=== PATIENT | female | born 1955 | race African-American/Black ===

== ENCOUNTER 2019-09-22 21:12 | Inpatient (IN) | payer MEDICARE, MEDICAID ==
[~2019-09-22] VITALS: Ht 182.9 cm; Wt 147.0 kg
[2019-09-22] MEDS ORDERED: IPRATROPIUM BROMIDE (0.02%) 0.5MG/2.5ML NEB HHN STA (21:23)
[2019-09-22] MEDS ORDERED: METHYLPREDNISOLONE SOD SUCC 125 MG/2 ML VIAL IV STA (21:23)
[2019-09-22] MEDS ORDERED: ALBUTEROL (0.083%) 2.5MG/3ML NEB HHN STA (21:23)
[2019-09-23] MEDS ORDERED: IPRATROPIUM BROMIDE (0.02%) 0.5MG/2.5ML NEB HHN STA (00:24)
[2019-09-23] MEDS ORDERED: ALBUTEROL (0.083%) 2.5MG/3ML NEB HHN STA (00:24)
[2019-09-23 00:30] LABS: EOSINOPHILS % 0.8 % (0.0-5.0); HEMOGLOBIN. 15.4 g/dL (12.0-16.0); LYMPHOCYTES % 13.9 % (20.0-50.0); MEAN CORPUSCULAR HEMOGLOBIN 30.3 pg (28.0-32.0); MEAN CORPUSCULAR VOLUME 90.3 fL (81.0-99.0); MEAN PLATELET VOLUME 7.2 fl (7.4-10.4); MONOCYTES % 2.8 % (2.0-8.0); NEUTROPHILS % 81.5 % (40.0-76.0); PLATELET 358 x1000/uL (130-400); RED BLOOD CELL COUNT 5.09 mill/uL (4.2-5.4); RED CELL DISTRIBUTION WIDTH 13.7 % (11.6-14.6)
[2019-09-23 01:17] LABS: CHLORIDE 107 mEq/L (98-107)
[2019-09-23] MEDS ORDERED: ENOXAPARIN 100MG/ML SYR SUBCUT NR (02:15)
[2019-09-23] MEDS ORDERED: METOPROLOL TARTRATE 25MG TABLET PO NR (02:15)
[2019-09-23] MEDS ORDERED: MORPHINE SULFATE 2 MG/ML CPJ (NOT FOR IM USE) IV PRN (02:15)
[2019-09-23] MEDS ORDERED: ASPIRIN 325MG EC TABLET PO NR (02:15)
[2019-09-23] MEDS ORDERED: NITROGLYCERIN OINT 1GM/INCH UDPKT TD SCH (05:00)
[2019-09-23] MEDS: ALBUTEROL 6.7GM HFA INHALER INH PRN ×3 (08:39→21:25)
[2019-09-23] MEDS ORDERED: METOPROLOL TARTRATE 25MG TABLET PO SCH (09:00)
[2019-09-23] MEDS: DILTIAZEM HCL 30MG TABLET PO SCH ×2 (12:30→22:00)
[2019-09-23] MEDS ORDERED: METHYLPREDNISOLONE SOD SUCC 40 MG/ML VIAL IV SCH (12:32)
[2019-09-23] MEDS: NITROGLYCERIN OINT 1GM/INCH UDPKT TD SCH ×2 (14:33→22:00)
[2019-09-23] MEDS: ENOXAPARIN 100MG/ML SYR SUBCUT SCH (15:55)
[2019-09-23] MEDS: MONTELUKAST SODIUM 10MG TABLET PO SCH (17:33)
[2019-09-23] MEDS: METOPROLOL TARTRATE 25MG TABLET PO SCH (21:00)
[2019-09-23 23:45] VITALS: BP 108/68
[2019-09-24] VITALS: BP 108/68
[2019-09-24] MEDS: FAMOTIDINE 20MG TABLET PO SCH ×3 (01:00→21:00)
[2019-09-24] MEDS: ATORVASTATIN CALCIUM 40MG TABLET PO SCH ×2 (01:00→21:00)
[2019-09-24] MEDS: METHYLPREDNISOLONE SOD SUCC 40 MG/ML VIAL IV SCH ×3 (01:00→13:49)
[2019-09-24] MEDS ORDERED: ATROV IH ×2 (01:58→16:09)
[2019-09-24] MEDS ORDERED: ALBU18HF2 IH ×2 (01:58→16:09)
[2019-09-24] MEDS: ENOXAPARIN 100MG/ML SYR SUBCUT SCH (03:04)
[2019-09-24 03:41] LABS: *AMPHETAMINES SCREEN URINE NEGATIVE (NEGATIVE)
[2019-09-24 03:42] LABS: *BARBITURATES SCREEN URINE NEGATIVE (NEGATIVE); *BENZODIAZEPINES SCREEN URINE NEGATIVE (NEGATIVE); *COCAINE SCREEN URINE NEGATIVE (NEGATIVE); METHADONE URINE SCREEN NEGATIVE (NEGATIVE); OPIATES URINE SCREEN PRESUMTIVE POSITIVE (NEGATIVE); PHENCYCLIDINE URINE SCREEN NEGATIVE (NEGATIVE)
[2019-09-24 03:43] LABS: CANNABINOID URINE SCREEN NEGATIVE (NEGATIVE)
[2019-09-24 04:00] VITALS: BP 128/79
[2019-09-24] MEDS: DILTIAZEM HCL 30MG TABLET PO SCH ×3 (05:07→22:00)
[2019-09-24] MEDS: NITROGLYCERIN OINT 1GM/INCH UDPKT TD SCH ×3 (05:07→22:00)
[2019-09-24] MEDS: ALBUTEROL 6.7GM HFA INHALER INH PRN (05:45)
[2019-09-24 06:39] LABS: INR 1.6; PROTHROMBIN TIME 17.4 sec (9.6-11.0)
[2019-09-24 07:00] LABS: CHLORIDE 108 mEq/L (98-107)
[2019-09-24 07:05] LABS: BASOPHILS % 0.7 % (0.0-2.0); HEMOGLOBIN. 13.6 g/dL (12.0-16.0); LYMPHOCYTES % 7.5 % (20.0-50.0); MEAN CORPUSCULAR HEMOGLOBIN 30.2 pg (28.0-32.0); MEAN PLATELET VOLUME 7.7 fl (7.4-10.4); MONOCYTES % 3.2 % (2.0-8.0); NEUTROPHILS % 88.6 % (40.0-76.0); PLATELET 371 x1000/uL (130-400); RED BLOOD CELL COUNT 4.51 mill/uL (4.2-5.4); RED CELL DISTRIBUTION WIDTH 13.8 % (11.6-14.6)
[2019-09-24 08:00] VITALS: BP 114/76
[2019-09-24] MEDS: LORATADINE 10MG TABLET PO SCH (08:38)
[2019-09-24] MEDS: ASPIRIN 81MG TABLET PO SCH (08:40)
[2019-09-24] MEDS: METOPROLOL TARTRATE 25MG TABLET PO SCH ×2 (08:40→21:00)
[2019-09-24 10:00] VITALS: BP 120/75
[2019-09-24 12:00] VITALS: BP 118/84
[2019-09-24] MEDS ORDERED: REGADENOSON 0.4 MG/5 ML IV NR (13:30)
[2019-09-24 16:00] VITALS: BP 108/86
[2019-09-24] MEDS ORDERED: ASPI-1158 MT (16:09)
[2019-09-24] MEDS ORDERED: LIP40 MT (16:10)
[2019-09-24] MEDS ORDERED: MED4 MT (16:10)
[2019-09-24] MEDS: MONTELUKAST SODIUM 10MG TABLET PO SCH (17:21)
[2019-09-24] MEDS: ENOXAPARIN 150MG/ML SYR SUBCUT SCH (18:00)
[2019-09-24] MEDS: FLUTICASONE PROPIONATE 50MCG/SPRAY BOTTLE BOTHNSTRLS SCH (21:00)
[2019-09-24] MEDS ORDERED: IPRATROPIUM/ALBUTEROL 0.5-3(2.5)MG/3ML NEB HHN SCH (22:00)
[2019-09-25 06:13] LABS: BASOPHILS % 0.8 % (0.0-2.0); HEMATOCRIT. 40.4 % (36.0-48.0); HEMOGLOBIN. 13.5 g/dL (12.0-16.0); LYMPHOCYTES % 9.7 % (20.0-50.0); MEAN CORPUSCULAR HEMOGLOBIN 30.2 pg (28.0-32.0); MEAN CORPUSCULAR VOLUME 90.5 fL (81.0-99.0); MEAN PLATELET VOLUME 7.6 fl (7.4-10.4); MONOCYTES % 6.8 % (2.0-8.0); NEUTROPHILS % 82.7 % (40.0-76.0); PLATELET 351 x1000/uL (130-400); RED BLOOD CELL COUNT 4.46 mill/uL (4.2-5.4); RED CELL DISTRIBUTION WIDTH 13.7 % (11.6-14.6)
[2019-09-25 07:02] LABS: CHLORIDE 106 mEq/L (98-107)
[2019-09-25] MEDS: DILTIAZEM HCL 30MG TABLET PO SCH ×2 (07:20→13:44)
[2019-09-25 08:00] VITALS: BP 138/84
[2019-09-25] MEDS: FLUTICASONE PROPIONATE 50MCG/SPRAY BOTTLE BOTHNSTRLS SCH (08:33)
[2019-09-25] MEDS: METHYLPREDNISOLONE SOD SUCC 40 MG/ML VIAL IV SCH ×2 (08:33→17:00)
[2019-09-25] MEDS: ENOXAPARIN 150MG/ML SYR SUBCUT SCH (08:40)
[2019-09-25] MEDS: NITROGLYCERIN OINT 1GM/INCH UDPKT TD SCH ×2 (08:41→13:44)
[2019-09-25] MEDS: ASPIRIN 81MG TABLET PO SCH (09:00)
[2019-09-25] MEDS: METOPROLOL TARTRATE 25MG TABLET PO SCH (09:00)
[2019-09-25] MEDS: LORATADINE 10MG TABLET PO SCH (09:00)
[2019-09-25] MEDS: FAMOTIDINE 20MG TABLET PO SCH (09:00)
[2019-09-25] MEDS ORDERED: REGADENOSON 0.4 MG/5 ML IV ONE (10:21)
[2019-09-25 12:00] VITALS: BP 137/79
[2019-09-25 12:23] VITALS: BP 137/79
[2019-09-25 16:00] VITALS: BP 130/83
[2019-09-25] MEDS: MONTELUKAST SODIUM 10MG TABLET PO SCH (17:00)
[2019-09-25] MEDS ORDERED: IPRATROPIUM/ALBUTEROL 0.5-3(2.5)MG/3ML NEB ONE (23:54)
== END 2019-09-25 17:50 | disposition home or self-care (01) | DRG 280 ==
LOC: ER 21:12 → EDBEDREQTM 09-23 00:37 → EDBEDREQ 09-23 00:37 → ENRESERV 09-23 23:05 → 7WST 09-23 23:43 → 6WST 09-24 11:37
PROVIDERS: ADMIT Internal Medicine; ATTEND Internal Medicine
DX: I21.4 Non-ST elevation (NSTEMI) myocardial infarction (principal); J96.01 Acute respiratory failure with hypoxia; J44.1 Chronic obstructive pulmonary disease with (acute) exacerbation; J45.901 Unspecified asthma with (acute) exacerbation; Z68.41 Body mass index [BMI] 40.0-44.9, adult; E66.09 Other obesity due to excess calories; D72.810 Lymphocytopenia; E78.5 Hyperlipidemia, unspecified; I10 Essential (primary) hypertension; T38.0X5A Adverse effect of glucocorticoids and synthetic analogues, initial encounter; Z20.828 Contact with and (suspected) exposure to other viral communicable diseases; D72.829 Elevated white blood cell count, unspecified; Z79.82 Long term (current) use of aspirin; Z79.899 Other long term (current) drug therapy; Z82.3 Family history of stroke; Z82.49 Family history of ischemic heart disease and other diseases of the circulatory system; Y92.89 Other specified places as the place of occurrence of the external cause; Z87.891 Personal history of nicotine dependence; Z71.89 Other specified counseling
CPT/HCPCS: 36415; 71045; 78452; 80048; 80053; 80061; 80305; 83880; 84443; 84484; 85025; 85379; 87420; 87635; 87804; 93005; 93017; 93306; 96372; 96374; 99291; A9500; J1650; J2270; J2785; J2920; J2930

== ENCOUNTER 2019-10-17 15:41 | Inpatient (IN) | payer MEDICARE, MEDICAID ==
[~2019-10-17] VITALS: Ht 182.9 cm; Wt 139.9 kg
[~2019-10-17 15:41] MED LIST: ALBU18HF2 IH; ASPI-1158 MT; ATROV IH; LIP40 MT; MED4 MT
[2019-10-17] MEDS ORDERED: METHYLPREDNISOLONE SOD SUCC 125 MG/2 ML VIAL IV STA (16:36)
[2019-10-17 17:00] LABS: BASOPHILS % 1.2 % (0.0-2.0); EOSINOPHILS % 7.2 % (0.0-5.0); HEMATOCRIT. 40.4 % (36.0-48.0); HEMOGLOBIN. 13.7 g/dL (12.0-16.0); LYMPHOCYTES % 25.3 % (20.0-50.0); MEAN CORPUSCULAR HEMOGLOBIN 30.7 pg (28.0-32.0); MEAN CORPUSCULAR VOLUME 90.7 fL (81.0-99.0); MEAN PLATELET VOLUME 6.8 fl (7.4-10.4); MONOCYTES % 8.6 % (2.0-8.0); NEUTROPHILS % 57.7 % (40.0-76.0); PLATELET 354 x1000/uL (130-400); RED BLOOD CELL COUNT 4.46 mill/uL (4.2-5.4); RED CELL DISTRIBUTION WIDTH 13.3 % (11.6-14.6)
[2019-10-17 17:07] LABS: CHLORIDE 110 mEq/L (98-107)
[2019-10-17] MEDS ORDERED: IPRATROPIUM BROMIDE (0.02%) 0.5MG/2.5ML NEB HHN STA (18:20)
[2019-10-17] MEDS ORDERED: ALBUTEROL (0.083%) 2.5MG/3ML NEB HHN STA (18:20)
[2019-10-17] MEDS ORDERED: ALBUTEROL (0.5%) 2.5MG/0.5ML NEB HHN ONE (18:43)
[2019-10-17] MEDS ORDERED: HYDROCODONE/ACETAMINOPHEN 10/325MG TABLET PO PRN (23:00)
[2019-10-17] MEDS ORDERED: MORPHINE SULFATE 2 MG/ML CPJ (NOT FOR IM USE) IV PRN (23:00)
[2019-10-17] MEDS ORDERED: CLONIDINE 0.1MG TABLET PO PRN (23:00)
[2019-10-17] MEDS ORDERED: LORAZEPAM 2MG/ML CPJ IV PRN (23:00)
[2019-10-17] MEDS ORDERED: MAGNESIUM/ALUMINUM HYDROXIDE/SIMETHICONE 30ML UDC PO PRN (23:00)
[2019-10-17] MEDS ORDERED: DOCUSATE SODIUM 100MG CAPSULE PO PRN (23:00)
[2019-10-17] MEDS ORDERED: DIPHENHYDRAMINE 50MG/ML VIAL IV PRN (23:00)
[2019-10-17] MEDS ORDERED: HYDRALAZINE 20MG/ML VIAL IV PRN (23:00)
[2019-10-17] MEDS ORDERED: ONDANSETRON HCL 4MG/2ML INJ IV PRN (23:00)
[2019-10-17] MEDS ORDERED: ACETAMINOPHEN 325MG TABLET PO PRN (23:00)
[2019-10-17] MEDS ORDERED: ENOXAPARIN 40MG/0.4ML SYR SUBCUT SCH (23:00)
[2019-10-17] MEDS ORDERED: IPRATROPIUM/ALBUTEROL 0.5-3(2.5)MG/3ML NEB HHN PRN (23:00)
[2019-10-17] MEDS ORDERED: GUAIFENESIN 200MG/10ML SUGAR FREE UDC PO PRN (23:00)
[2019-10-18] MEDS ORDERED: DIPHENHYDRAMINE 50MG/ML VIAL IV PRN (03:05)
[2019-10-18] MEDS ORDERED: CLONIDINE 0.1MG TABLET PO PRN (03:15)
[2019-10-18] MEDS ORDERED: ACETAMINOPHEN 325MG TABLET PO PRN (03:15)
[2019-10-18] MEDS ORDERED: GUAIFENESIN 200MG/10ML SUGAR FREE UDC PO PRN (03:30)
[2019-10-18] MEDS ORDERED: DOCUSATE SODIUM 100MG CAPSULE PO PRN (03:30)
[2019-10-18] MEDS ORDERED: IPRATROPIUM/ALBUTEROL 0.5-3(2.5)MG/3ML NEB HHN PRN (04:34)
[2019-10-18] MEDS ORDERED: HYDROCODONE/ACETAMINOPHEN 10/325MG TABLET PO PRN (04:34)
[2019-10-18] MEDS ORDERED: LORAZEPAM 2MG/ML CPJ IV PRN (04:45)
[2019-10-18] MEDS ORDERED: MAGNESIUM/ALUMINUM HYDROXIDE/SIMETHICONE 30ML UDC PO PRN (04:45)
[2019-10-18] MEDS ORDERED: HYDRALAZINE 20MG/ML VIAL IV PRN (04:45)
[2019-10-18] MEDS ORDERED: ONDANSETRON HCL 4MG/2ML INJ IV PRN (04:45)
[2019-10-18] MEDS ORDERED: MORPHINE SULFATE 2 MG/ML CPJ (NOT FOR IM USE) IV PRN (04:45)
[2019-10-18] MEDS: SODIUM CHLORIDE 0.9% INJ 3ML FLUSH IVF SCH ×2 (08:00→14:23)
[2019-10-18] MEDS: ENOXAPARIN 40MG/0.4ML SYR SUBCUT SCH (14:26)
[2019-10-18] MEDS ORDERED: ALBUTEROL 6.7GM HFA INHALER ORI SCH (21:00)
[2019-10-19 08:50] VITALS: BP 125/83
[2019-10-19] MEDS ORDERED: THIAMINE HCL 100MG TABLET PO SCH (09:00)
[2019-10-19] MEDS ORDERED: ASCORBIC ACID 500 MG TABLET PO SCH (09:00)
[2019-10-19] MEDS ORDERED: ZINC SULFATE 220 MG ( 50 ) CAPSULE PO SCH (09:00)
[2019-10-19] MEDS: ENOXAPARIN 40MG/0.4ML SYR SUBCUT SCH ×2 (10:15→22:29)
[2019-10-19] MEDS ORDERED: FAMO20TA8 MT (11:55)
[2019-10-19 12:00] VITALS: BP 106/66
[2019-10-19] MEDS ORDERED: IPRATROPIUM/ALBUTEROL 0.5-3(2.5)MG/3ML NEB HHN PRN (13:45)
[2019-10-19] MEDS: SODIUM CHLORIDE 0.9% INJ 3ML FLUSH IVF SCH ×2 (13:50→22:30)
[2019-10-19 16:00] VITALS: BP 112/77
[2019-10-19] MEDS ORDERED: IPRATROPIUM/ALBUTEROL 0.5-3(2.5)MG/3ML NEB HHN SCH (16:00)
[2019-10-19] MEDS ORDERED: MONTELUKAST SODIUM 10MG TABLET PO SCH (17:00)
[2019-10-19 20:00] VITALS: BP 105/71
[2019-10-19] MEDS: FAMOTIDINE 20MG TABLET PO SCH (22:29)
[2019-10-19] MEDS: METHYLPREDNISOLONE SOD SUCC 40 MG/ML VIAL IV SCH (22:29)
[2019-10-20] VITALS: BP 129/81
[2019-10-20 04:00] VITALS: BP 110/73
[2019-10-20] MEDS: SODIUM CHLORIDE 0.9% INJ 3ML FLUSH IVF SCH (06:24)
[2019-10-20 08:00] VITALS: BP 120/85
[2019-10-20] MEDS: FAMOTIDINE 20MG TABLET PO SCH (08:30)
[2019-10-20] MEDS: METHYLPREDNISOLONE SOD SUCC 40 MG/ML VIAL IV SCH (08:30)
[2019-10-20] MEDS: ENOXAPARIN 40MG/0.4ML SYR SUBCUT SCH (08:31)
[2019-10-20] MEDS ORDERED: LORATADINE 10MG TABLET PO SCH (09:00)
[2019-10-20 09:42] VITALS: BP 120/85
[2019-10-20 09:45] VITALS: BP 120/85
[2019-10-20 12:00] VITALS: BP 106/68
== END 2019-10-20 12:45 | disposition home or self-care (01) | DRG 189 ==
LOC: ER 15:41 → 6WST 18:17 → EDBEDREQTM 18:19 → EDBEDREQ 18:19 → ENRESERV 22:12 → CANRESERV 22:12 → 5WST 22:55 → UNDOADMIN 22:55 → EDBEDREQ 10-18 21:56 → ENRESERV 10-19 04:49 → CANRESERV 10-19 04:49 → ENRESERV 10-19 07:44
PROVIDERS: ADMIT Internal Medicine; ATTEND Internal Medicine
DX: J96.00 Acute respiratory failure, unspecified whether with hypoxia or hypercapnia (principal); J45.901 Unspecified asthma with (acute) exacerbation; E46 Unspecified protein-calorie malnutrition; Z68.41 Body mass index [BMI] 40.0-44.9, adult; D72.819 Decreased white blood cell count, unspecified; R79.89 Other specified abnormal findings of blood chemistry; I10 Essential (primary) hypertension; D72.1 Eosinophilia; J44.9 Chronic obstructive pulmonary disease, unspecified; E66.01 Morbid (severe) obesity due to excess calories; Z79.82 Long term (current) use of aspirin; Z79.899 Other long term (current) drug therapy; Z87.891 Personal history of nicotine dependence; I25.2 Old myocardial infarction; Z03.818 Encounter for observation for suspected exposure to other biological agents ruled out
CPT/HCPCS: 36415; 71045; 80053; 83880; 84484; 85025; 85379; 87635; 93005; 94640; 96374; 99285; J1650; J2920; J2930; C9803-CS; U0003-CS

== ENCOUNTER 2022-04-09 12:47 | Emergency (ER) | payer MEDICARE, MEDICAID ==
[~2022-04-09] VITALS: Ht 172.7 cm; Wt 100.0 kg
[~2022-04-09 12:47] MED LIST changes: -ASPI-1158 MT; +ASPI-1406 MT; +FAMO20TA8 MT; -MED4 MT
[2022-04-09] MEDS ORDERED: PREDNISONE 20MG TABLET PO ONE (14:00)
[2022-04-09] MEDS ORDERED: IPRATROPIUM/ALBUTEROL 0.5-3(2.5)MG/3ML NEB HHN ONE ×2 (14:00→16:15)
[2022-04-09] MEDS ORDERED: MAGNESIUM 1 G PREMIX 100 ML IV ONE (14:00)
[2022-04-09 14:31] LABS: BASOPHILS % 1.5 % (0.0-2.0); HEMATOCRIT. 45.1 % (36.0-48.0); HEMOGLOBIN. 14.9 g/dL (12.0-16.0); LYMPHOCYTES % 36.3 % (20.0-50.0); MEAN CORPUSCULAR HEMOGLOBIN 29.5 pg (28.0-32.0); MEAN CORPUSCULAR VOLUME 89.5 fL (81.0-99.0); MEAN PLATELET VOLUME 7.4 fl (7.4-10.4); MONOCYTES % 8.2 % (2.0-8.0); PLATELET 344 x1000/uL (130-400); RED BLOOD CELL COUNT 5.04 mill/uL (4.2-5.4); RED CELL DISTRIBUTION WIDTH 14.2 % (11.6-14.6)
[2022-04-09 14:37] LABS: CHLORIDE 104 mEq/L (98-107)
[2022-04-09] MEDS ORDERED: P20 PO (18:37)
[2022-04-09 18:40] VITALS: BP 122/72
[2022-04-09] MEDS ORDERED: DOXY100C5 MT (20:50)
== END 2022-04-09 18:41 | disposition home or self-care (01) ==
LOC: ER 12:47
DX: J45.901 Unspecified asthma with (acute) exacerbation (principal); I10 Essential (primary) hypertension; Z98.890 Other specified postprocedural states
CPT/HCPCS: 36415; 71045; 80053; 85025; 93005; 94640; 96365; 99284; J3475; J7512

== ENCOUNTER 2022-05-02 22:13 | Emergency (ER) | payer MEDICARE, MEDICAID ==
[~2022-05-02] VITALS: Ht 182.9 cm; Wt 115.0 kg
[~2022-05-02 22:13] MED LIST changes: +DOXY100C5 MT; +P20 PO
[2022-05-02 22:19] VITALS: BP 139/99
[2022-05-02] MEDS ORDERED: METHYLPREDNISOLONE SOD SUCC 125 MG/2 ML VIAL IV STA (22:43)
[2022-05-02] MEDS ORDERED: IPRATROPIUM BROMIDE (0.02%) 0.5MG/2.5ML NEB HHN STA (22:43)
[2022-05-02] MEDS ORDERED: ALBUTEROL (0.083%) 2.5MG/3ML NEB HHN STA (22:43)
[2022-05-02] MEDS ORDERED: MAGNESIUM 2 G PREMIX 50 ML IV ONE (22:45)
[2022-05-02 23:29] LABS: BASOPHILS % 0.8 % (0.0-2.0); EOSINOPHILS % 2.3 % (0.0-5.0); HEMATOCRIT. 39.7 % (36.0-48.0); HEMOGLOBIN. 13.3 g/dL (12.0-16.0); LYMPHOCYTES % 13.9 % (20.0-50.0); MEAN CORPUSCULAR HEMOGLOBIN 30.4 pg (28.0-32.0); MEAN CORPUSCULAR VOLUME 90.9 fL (81.0-99.0); MONOCYTES % 14.3 % (2.0-8.0); NEUTROPHILS % 68.7 % (40.0-76.0); PLATELET 324 x1000/uL (130-400); RED BLOOD CELL COUNT 4.37 mill/uL (4.2-5.4); RED CELL DISTRIBUTION WIDTH 14.7 % (11.6-14.6)
[2022-05-02 23:49] LABS: CHLORIDE 110 mEq/L (98-107)
[2022-05-03 00:26] LABS: CLARITY URINE CLEAR (CLEAR); COLOR URINE YELLOW (YELLOW); KETONES URINE NEGATIVE (NEGATIVE); LEUKOCYTE ESTERASE URINE NEGATIVE (NEGATIVE); NITRITE URINE NEGATIVE (NEGATIVE); OCCULT BLOOD URINE NEGATIVE (NEGATIVE); PROTEIN URINE NEGATIVE (NEGATIVE); SPECIFIC GRAVITY URINE 1.018 (1.005-1.030); UROBILINOGEN URINE 0.2 E.U./dL (0.2-1.0)
[2022-05-03] MEDS ORDERED: IPRATROPIUM BROMIDE (0.02%) 0.5MG/2.5ML NEB ONE (00:26)
[2022-05-03] MEDS ORDERED: ALBUTEROL (0.083%) 2.5MG/3ML NEB ONE (00:26)
[2022-05-03] MEDS ORDERED: P20 MT (01:41)
== END 2022-05-03 02:52 | disposition home or self-care (01) ==
LOC: ER 22:19
DX: J44.1 Chronic obstructive pulmonary disease with (acute) exacerbation (principal); I10 Essential (primary) hypertension; Z79.82 Long term (current) use of aspirin
CPT/HCPCS: 36415; 71045; 80053; 81003; 83880; 84484; 85025; 93005; 94640; 96365; 96375; 99285; J2930; J3475

== ENCOUNTER 2022-06-19 03:50 | Emergency (ER) | payer MEDICARE, MEDICAID ==
[~2022-06-19] VITALS: Ht 182.9 cm; Wt 112.0 kg
[~2022-06-19 03:50] MED LIST changes: +P20 MT
[2022-06-19] MEDS ORDERED: ALBUTEROL (0.083%) 2.5MG/3ML NEB HHN STA (05:26)
[2022-06-19] MEDS ORDERED: IPRATROPIUM BROMIDE (0.02%) 0.5MG/2.5ML NEB HHN STA (05:26)
[2022-06-19] MEDS ORDERED: DEXAMETHASONE 4MG/ML 1ML VIAL IM ONE (05:30)
[2022-06-19 05:48] LABS: HEMATOCRIT. 39.3 % (36.0-48.0); HEMOGLOBIN. 13.6 g/dL (12.0-16.0); MEAN CORPUSCULAR HEMOGLOBIN 31.4 pg (28.0-32.0); MEAN CORPUSCULAR VOLUME 90.7 fL (81.0-99.0); MEAN PLATELET VOLUME 6.7 fl (7.4-10.4); PLATELET 327 x1000/uL (130-400); RED BLOOD CELL COUNT 4.33 mill/uL (4.2-5.4); RED CELL DISTRIBUTION WIDTH 14.7 % (11.6-14.6)
[2022-06-19 05:53] LABS: CHLORIDE 105 mEq/L (98-107)
[2022-06-19] MEDS ORDERED: ALBU6.7H3 INH (07:21)
[2022-06-19] MEDS ORDERED: MED4 MT (07:21)
[2022-06-19] MEDS ORDERED: AZIT250T12 MT (07:22)
[2022-06-19 07:43] VITALS: BP 137/73
[2022-06-19 08:13] LABS: ATYPICAL LYMPHOCYTES 1; PLATELET ESTIMATE NORMAL
== END 2022-06-19 07:45 | disposition home or self-care (01) ==
LOC: ER 03:50
DX: J44.1 Chronic obstructive pulmonary disease with (acute) exacerbation (principal); I10 Essential (primary) hypertension; Z79.899 Other long term (current) drug therapy; Z98.890 Other specified postprocedural states
CPT/HCPCS: 36415; 71045; 80053; 85025; 94640; 99284; J1100

== ENCOUNTER 2023-04-11 15:15 | Emergency (ER) | payer MEDICAID, MEDICARE ==
[~2023-04-11] VITALS: Ht 175.3 cm; Wt 105.0 kg
[~2023-04-11 15:15] MED LIST changes: +ALBU6.7H3 INH; +AZIT250T12 MT; +MED4 MT
[2023-04-11 15:45] VITALS: BP 115/79; PULSE 106; RESP 18; TEMP 98.1; O2SAT 99
[2023-04-11 16:49] LABS: BASOPHILS % 1.4 % (0.0-2.0); EOSINOPHILS % 4.2 % (0.0-5.0); HEMATOCRIT. 41.2 % (36.0-48.0); HEMOGLOBIN. 13.6 g/dL (12.0-16.0); LYMPHOCYTES % 32.6 % (20.0-50.0); MEAN CORPUSCULAR HEMOGLOBIN 30.3 pg (28.0-32.0); MEAN CORPUSCULAR VOLUME 91.9 fL (81.0-99.0); MEAN PLATELET VOLUME 7.4 fl (7.4-10.4); MONOCYTES % 10.2 % (2.0-8.0); NEUTROPHILS % 51.6 % (40.0-76.0); PLATELET 333 x1000/uL (130-400); RED BLOOD CELL COUNT 4.49 mill/uL (4.2-5.4); RED CELL DISTRIBUTION WIDTH 13.1 % (11.6-14.6); WHITE BLOOD COUNT 5.1 x1000/uL (4.5-11.0)
[2023-04-11 17:19] LABS: CHLORIDE 106 mEq/L (98-107); INDEX HEMOLYSI 1 (1-3); INDEX ICTERIC 1 (1-4); INDEX LIPEMIC 1 (1-3); POTASSIUM 4.2 mEq/L (3.5-5.1); SODIUM 138 mEq/L (136-145)
[2023-04-11 17:29] LABS: ALANINE AMINOTRANSFERASE 18 IU/L (13-61); ALBUMIN 3.9 g/dL (3.4-5.0); ASPARTATE AMINOTRANSFERASE 20 IU/L (15-37); BILIRUBIN TOTAL 0.4 mg/dL (0.1-1.0); CALCIUM 9.2 mg/dL (8.5-10.1); CARBON DIOXIDE 27 mEq/L (21-32); CREATININE 0.9 mg/dL (0.6-1.3); GLUCOSE 88 mg/dL (70-105); PROTEIN TOTAL 7.7 g/dL (6.0-8.3); TROPONIN I HIGH SENSITIVITY 4 ng/L (<54); UREA NITROGEN BLOOD 15 mg/dL (7-21)
[2023-04-11] MEDS ORDERED: OMEP40CA20 MT (20:27)
[2023-04-11] MEDS ORDERED: MAGNESIUM/ALUMINUM HYDROXIDE/SIMETHICONE 30ML UDC PO ONE (20:30)
== END 2023-04-11 21:07 | disposition home or self-care (01) ==
LOC: ER 15:15
DX: R10.815 Periumbilic abdominal tenderness (principal); M19.90 Unspecified osteoarthritis, unspecified site; J44.9 Chronic obstructive pulmonary disease, unspecified; Z96.653 Presence of artificial knee joint, bilateral
CPT/HCPCS: 36415; 74176; 80053; 84484; 85025; 93005; 99284

== ENCOUNTER 2023-07-13 11:09 | Inpatient (IN) | payer MEDICARE, MEDICAID ==
[~2023-07-13] VITALS: Ht 182.9 cm; Wt 113.4 kg
[~2023-07-13 11:09] MED LIST changes: +OMEP40CA20 MT
[2023-07-13] MEDS: METHYLPREDNISOLONE SOD SUCC 125MG/2ML (ACT-O-VIAL) IV STA (11:43)
[2023-07-13 12:12] LABS: BASOPHILS % 0.9 % (0.0-2.0); EOSINOPHILS % 4.6 % (0.0-5.0); HEMATOCRIT. 41.2 % (36.0-48.0); HEMOGLOBIN. 13.7 g/dL (12.0-16.0); LYMPHOCYTES % 28.9 % (20.0-50.0); MEAN CORPUSCULAR HEMOGLOBIN 31.3 pg (28.0-32.0); MEAN CORPUSCULAR HGB CONC 33.2 g/dL (31.0-37.0); MEAN CORPUSCULAR VOLUME 94.4 fL (81.0-99.0); MEAN PLATELET VOLUME 7.1 fl (7.4-10.4); NEUTROPHILS % 55.6 % (40.0-76.0); PLATELET 336 x1000/uL (130-400); RED BLOOD CELL COUNT 4.36 mill/uL (4.2-5.4); RED CELL DISTRIBUTION WIDTH 14.6 % (11.6-14.6); WHITE BLOOD COUNT 7.8 x1000/uL (4.5-11.0)
[2023-07-13] MEDS: IPRATROPIUM BROMIDE (0.02%) 0.5MG/2.5ML NEB HHN STA (12:16)
[2023-07-13] MEDS: ALBUTEROL (0.083%) 2.5MG/3ML NEB HHN STA (12:16)
[2023-07-13 12:33] LABS: ALANINE AMINOTRANSFERASE 10 IU/L (10-49); ALBUMIN 4.2 g/dL (3.2-4.8); ASPARTATE AMINOTRANSFERASE 19 IU/L (<34); BILIRUBIN TOTAL 0.4 mg/dL (0.1-1.0); CALCIUM 9.4 mg/dL (8.7-10.4); CARBON DIOXIDE 24 mEq/L (21-32); CHLORIDE 107 mEq/L (98-107); CREATININE 0.8 mg/dL (0.6-1.0); GLUCOSE 108 mg/dL (70-105); POTASSIUM 3.5 mEq/L (3.5-5.1); PROTEIN TOTAL 6.7 g/dL (6.0-8.3); SODIUM 140 mEq/L (136-145); UREA NITROGEN BLOOD 10 mg/dL (9-23)
[2023-07-13 12:38] LABS: TROPONIN I HIGH SENSITIVITY < 4 ng/L (3.0-34)
[2023-07-13 13:16] VITALS: PULSE 116; RESP 20; O2SAT 94
[2023-07-13 15:00] VITALS: BP 156/98; PULSE 136; RESP 26; TEMP 97.9
[2023-07-13 16:13] VITALS: BP 146/75; PULSE 125; RESP 20; TEMP 98.3
[2023-07-13] MEDS ORDERED: IPRATROPIUM BROMIDE (0.02%) 0.5MG/2.5ML NEB HHN SCH ×2 (17:30→17:45)
[2023-07-13] MEDS ORDERED: METHYLPREDNISOLONE SOD SUCC 40MG/ML (ACT-O-VIAL) IV SCH (17:30)
[2023-07-13 18:35] LABS: BG BASE EXCESS 0.6 mmol/L (-2.0-2.0); BG CARBOXYHEMOGLOBIN 0.4 % (0.5-1.5); BG DEOXYHEMOGLOBIN 4.6 % (0.0-5.0); BG FRACTION INSPIRED OXYGEN 28; BG HCO3 ACT 24.7 mmol/L (22.0-26.0); BG METHEMOGLOBIN 0.2 % (0.0-1.5); BG OXYGEN SATURATION 95.4 % (92.0-98.5); BG OXYHEMOGLOBIN 94.8 % (94.0-97.0); BG SAMPLE SITE RIGHT RADIAL; BG TOTAL HEMOGLOBIN 14.5 g/dL (12.0-18.0); BG VENT MODE NASAL CANNULA
[2023-07-13] MEDS: DILTIAZEM HCL 30MG TABLET PO SCH (18:39)
[2023-07-13 20:00] VITALS: BP 153/87; PULSE 124; RESP 19; TEMP 97.9
[2023-07-13] MEDS ORDERED: ENOXAPARIN 40MG/0.4ML SYR SUBCUT SCH ×3 (20:00)
[2023-07-13] MEDS ORDERED: METHYLPREDNISOLONE SOD SUCC 40MG VIAL IV SCH (20:00)
[2023-07-13] MEDS: METHYLPREDNISOLONE SOD SUCC 40MG/ML (ACT-O-VIAL) IV SCH (20:00)
[2023-07-13] MEDS: ENOXAPARIN 30MG/0.3ML SYR SUBCUT SCH (20:38)
[2023-07-13] MEDS: IPRATROPIUM/ALBUTEROL 0.5-3(2.5)MG/3ML NEB HHN SCH (21:15)
[2023-07-13 21:30] VITALS: PULSE 100; RESP 21; O2SAT 95
[2023-07-14] VITALS (11 sets, daily range): BP systolic 110–129; BP diastolic 64–83; PULSE 101–118; RESP 14–22; TEMP 96.2–97.9; O2SAT 95–96
[2023-07-14] MEDS: DILTIAZEM HCL 30MG TABLET PO SCH (02:13)
[2023-07-14] MEDS: PANTOPRAZOLE SODIUM 40 MG/VIAL IV SCH (09:47)
[2023-07-14] MEDS: ACETAMINOPHEN 325MG TABLET PO PRN (17:05)
[2023-07-15] VITALS (7 sets, daily range): BP systolic 115–132; BP diastolic 65–85; PULSE 94–114; RESP 16–20; TEMP 96.8–98.8; O2SAT 97
[2023-07-15] MEDS ORDERED: MED4 MT (09:54)
[2023-07-15] MEDS ORDERED: BUDE6HFA INH (09:54)
[2023-07-15] MEDS ORDERED: DILT120C88 MT (09:54)
[2023-07-15 10:24] LABS: BG BASE EXCESS -0.3 mmol/L (-2.0-2.0); BG CARBOXYHEMOGLOBIN 0.5 % (0.5-1.5); BG DEOXYHEMOGLOBIN 2.4 % (0.0-5.0); BG FRACTION INSPIRED OXYGEN 21; BG METHEMOGLOBIN 0.2 % (0.0-1.5); BG OXYGEN SATURATION 97.6 % (92.0-98.5); BG OXYHEMOGLOBIN 96.9 % (94.0-97.0); BG PCO2 29.9 mmHg (35.0-45.0); BG PH 7.485 (7.350-7.450); BG PO2 95.5 mmHg (75.0-100.0); BG SAMPLE SITE RIGHT RADIAL; BG TOTAL HEMOGLOBIN 14.3 g/dL (12.0-18.0); BG VENT MODE ROOM AIR
[2023-07-16] MEDS ORDERED: FAMOTIDINE 20MG/2ML VIAL IV SCH (09:00)
== END 2023-07-15 19:00 | disposition home or self-care (01) | DRG 189 ==
LOC: ER 11:09 → 8WST 13:33 → EDBEDREQTM 13:35 → EDBEDREQ 13:35
PROVIDERS: ADMIT Internal Medicine; ATTEND Internal Medicine
DX: J96.01 Acute respiratory failure with hypoxia (principal); J44.1 Chronic obstructive pulmonary disease with (acute) exacerbation; J45.901 Unspecified asthma with (acute) exacerbation; R00.0 Tachycardia, unspecified; E66.9 Obesity, unspecified; I50.9 Heart failure, unspecified; I11.0 Hypertensive heart disease with heart failure; E11.9 Type 2 diabetes mellitus without complications; E78.5 Hyperlipidemia, unspecified; Z87.891 Personal history of nicotine dependence; Z79.899 Other long term (current) drug therapy; Z68.33 Body mass index [BMI] 33.0-33.9, adult
CPT/HCPCS: 36415; 36600; 71045; 80053; 82375; 82805; 83880; 84484; 85025; 93005; 93306; 94640; 99285; C9113; J1650; J2920; J2930